=== PATIENT | male | born 1995 | race Caucasian/White ===

== ENCOUNTER 2021-02-17 22:23 | Emergency (ER) | payer BC ==
[~2021-02-17] VITALS: Ht 177.8 cm; Wt 90.9 kg
[2021-02-17] MEDS ORDERED: ISOVUE-370 76% 100ML VIAL As Ordered ONE (22:53)
[2021-02-17 23:11] LABS: BASO % 0.2 % (0.0-1.0); EOS # 0.1 10^3/uL (0.0-0.5); EOS % 0.5 % (0.0-3.0); HEMATOCRIT 45.3 % (42.0-52.0); HEMOGLOBIN 15.9 g/dl (13.5-17.5); LYMPH # 2.9 10^3/uL (1.5-5.0); LYMPH % 22.6 % (24.0-44.0); MEAN CORPUSCULAR HEMOGLOBIN 30.5 pg (27.0-33.0); MEAN CORPUSCULAR HGB CONC 35.1 g/dl (32.0-36.5); MEAN CORPUSCULAR VOLUME 86.9 fl (80.0-96.0); MONO # 0.7 10^3/uL (0.0-0.8); MONO % 5.5 % (2.0-8.0); PLATELET COUNT, AUTOMATED 315 10^3/uL (150-450); RED BLOOD COUNT 5.21 10^6/uL (4.30-6.10); WHITE BLOOD COUNT 12.6 10^3/uL (4.0-10.0)
[2021-02-17 23:30] LABS: ALBUMIN 4.7 GM/DL (3.2-5.2); BILIRUBIN,DIRECT 0.1 MG/DL (0.0-0.2); BILIRUBIN,TOTAL 0.5 MG/DL (0.2-1.0); ETHYL ALCOHOL (ETHANOL) 0.275 % (0.000-0.010); TOTAL PROTEIN 7.7 GM/DL (6.4-8.2)
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
[2021-02-17] MEDS ORDERED: NS 1,000 ML IV ONE (23:55)
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
[2021-02-18] MEDS ORDERED: POTASSIUM CHLORIDE 10 MEQ SR TABLET PO ONE (00:25)
[2021-02-18 00:30] VITALS: BP 140/78
== END 2021-02-18 00:57 | disposition home or self-care (01) ==
LOC: M ED 22:23
DX: Z04.1 Encounter for examination and observation following transport accident (principal); E87.6 Hypokalemia; F10.120 Alcohol abuse with intoxication, uncomplicated
CPT/HCPCS: 70450; 71260; 72125; 74177; 80047; 80076; 82077; 83690; 85025; 96360; 99285; Q9967

== ENCOUNTER 2022-12-25 11:30 | Emergency (ER) | payer BC, OTHER ==
[~2022-12-25] VITALS: Ht 177.8 cm; Wt 85.6 kg
[2022-12-25] MEDS ORDERED: BACTDSTA (11:48)
[2022-12-25 13:55] LABS: GC DNA AMPLIFICATION NEGATIVE (NEGATIVE)
[2022-12-25 14:23] VITALS: BP 148/86
== END 2022-12-25 14:23 | disposition home or self-care (01) ==
LOC: M ED 11:30
DX: R39.11 Hesitancy of micturition (principal); M79.18 Myalgia, other site; Z79.2 Long term (current) use of antibiotics

== ENCOUNTER → 2022-12-26 | Outpatient (REF) | payer BC ==
[~2022-12-26] MED LIST: BACTDSTA
[2022-12-26 16:02] LABS: APPEARANCE, URINE CLEAR (CLEAR); BACTERIA, URINE AUTO NEGATIVE (NEGATIVE); BILIRUBIN, URINE AUTO NEGATIVE (NEGATIVE); BLOOD, URINE BLOOD NEGATIVE (NEGATIVE); COLOR, URINE STRAW (YELLOW); GLUCOSE, URINE (UA) AUTO NEGATIVE (NEGATIVE); KETONE, URINE AUTO NEGATIVE (NEGATIVE); LEUKOCYTE ESTERASE, URINE AUTO NEGATIVE (NEGATIVE); MUCUS, URINE SMALL (NEGATIVE); NITRITE, URINE AUTO NEGATIVE (NEGATIVE); PROTEIN, URINE AUTO NEGATIVE (NEGATIVE); RBC, URINE AUTO 0 /HPF (0-3); SPECIFIC GRAVITY URINE AUTO 1.004 (1.002-1.035); SQUAMOUS EPITHELIAL CELL UR AU 0 /HPF (0-6); UROBILINOGEN, URINE AUTO 0.2 mg/dL (0.0-2.0); WBC, URINE AUTO 0 /HPF (0-3)
== END ==
LOC: M SMT 15:26
PROVIDERS: ATTEND Physician Assistant
DX: R30.0 Dysuria (principal)

== ENCOUNTER → 2025-06-02 | Outpatient (REF) | payer BC | LOC: M LAB REF 11:42 | PROVIDERS: ATTEND Physician Assistant | DX: R30.0 Dysuria (principal) ==